=== PATIENT | female | born 1995 | race Hispanic/Latino ===

== ENCOUNTER 2017-08-29 00:54 | Emergency (ER) | payer BC ==
[2017-08-29 01:43] VITALS: BP 133/83; PULSE 79; RESP 16; TEMP 98.3; O2SAT 98
[2017-08-29] MEDS ORDERED: Sodium Chloride 0.9% 1,000 ML IV STA (02:17)
[2017-08-29 03:18] LABS: HEMOGLOBIN 11.9 g/dL (12.0-16.0); MEAN CELL VOLUME 94.7 fl (81.0-99.0); MEAN CORPUSCULAR HEMOGLOBIN 31.9 pg (27.0-31.0); MEAN CORPUSCULAR HGB CONC 33.7 g/dL (33.0-37.0); RBC 3.72 Mil/uL (3.80-5.20); RED CELL DISTRIBUTION WIDTH 12.9 % (11.5-14.5); WHITE BLOOD COUNT 7.8 K/uL (4.8-10.8)
[2017-08-29 03:22] LABS: ALB/GLOB RATIO 1.6 (1.0-2.1); ALBUMIN 4.4 g/dL (3.5-5.0); ALT/SGPT 33 U/L (9-52); AST/SGOT 23 U/L (14-36); BILIRUBIN,DIRECT 0.2 mg/ml (0.0-0.4); BLOOD UREA NITROGEN 12 mg/dl (7-17); CALCIUM 8.7 mg/dL (8.4-10.2); GFR AFRICAN-AMERICAN > 60; GFR NON-AFRICAN AMERICAN > 60; LIPASE 116 U/L (23-300)
--- NOTE | 2017-08-29 03:32 | ED PDOC ---
HPI: Abdomen Time Seen by Provider: 08/29/17 02:12 Chief Complaint (Nursing): Abdominal Pain Chief Complaint (Provider): Abdominal pain History Per: Patient History/Exam Limitations: no limitations Onset/Duration Of Symptoms: Days Outside of [place] travel?: No Location Of Pain/Discomfort: Epigastric Associated Symptoms: Nausea. denies: Vomiting Additional History Per: Patient Additional Complaint(s): 22yo female, presents to ED with complaints of epigastric pain, present for the past 2 months but worse last night. Patient states she was drinking wine last night and felt the pain was worse than normal. She reports some associated nausea, denies any vomiting, diarrhea, constipation, urinary symptoms, fever, chills or weight loss. She has no other medical complaints. Past Medical History Reviewed: Historical Data, Nursing Documentation, Vital Signs Vital Signs: Last Vital Signs Temp 98.3 F 08/29/17 01:41 Pulse 79 08/29/17 01:41 Resp 16 08/29/17 01:41 BP 133/83 08/29/17 01:41 Pulse Ox 98 08/29/17 01:41 - Medical History PMH: No Chronic Diseases - Surgical History Surgical History: No Surg Hx - Family History Family History: States: No Known Family Hx - Home Medications Home Medications: Ambulatory Orders Medication Instructions Recorded Famotidine [Pepcid] 20 mg PO BID #20 tab 08/29/17 Omeprazole 20 mg PO DAILY #30 capsule. 08/29/17 - Allergies Allergies/Adverse Reactions: Allergies Allergy/AdvReac Type Severity Reaction Status Date / Time Sulfa (Sulfonamide Allergy URTICARIA Verified 08/29/17 01:43 Antibiotics) Review of Systems ROS Statement: Except As Marked, All Systems Reviewed And Found Negative Constitutional: Negative for: Fever, Chills Gastrointestinal: Positive for: Nausea, Abdominal Pain (epigastric). Negative for: Vomiting, Diarrhea, Constipation Genitourinary Female: Negative for: Dysuria, Frequency, Hematuria Physical Exam - Reviewed Nursing Documentation Reviewed: Yes Vital Signs Reviewed: Yes - Physical Exam Appears: Positive for: Non-toxic, No Acute Distress Head Exam: Positive for: ATRAUMATIC, NORMAL INSPECTION, NORMOCEPHALIC Skin: Positive for: Normal Color Eye Exam: Positive for: EOMI, PERRL Neck: Positive for: Supple Cardiovascular/Chest: Positive for: Regular Rate, Rhythm Respiratory: Positive for: Normal Breath Sounds. Negative for: Respiratory Distress Gastrointestinal/Abdominal: Positive for: Soft, Tenderness (epigastric) Neurologic/Psych: Positive for: Alert, Oriented. Negative for: Motor/Sensory Deficits - Laboratory Results Result Diagrams: 08/29/17 03:06 08/29/17 03:06 - ECG O2 Sat by Pulse Oximetry: 98 (RA) Pulse Ox Interpretation: Normal Medical Decision Making Medical Decision Making: Impression: Gastritis vs. pancreatitis Plan: -- Labs -- Pepcid 20 mg IVP -- IV Fluids Time: 0330 Patient reports feeling much better and is stable for discharge home. Patient informed to return to ED if symptoms worsen or new symptoms arise. Scribe Attestation: Documented by Indira Wilder, acting as a scribe for Denny Shi MD Provider Scribe Attestation: All medical record entries made by the Scribe were at my direction and personally dictated by me. I have reviewed the chart and agree that the record accurately reflects my personal performance of the history, physical exam, medical decision making, and the department course for this patient. I have also personally directed, reviewed, and agree with the discharge instructions and disposition. Disposition - Clinical Impression Clinical Impression: Gastritis - Disposition Referrals: Lety Guy [Outside] Disposition: Routine/Home Disposition Time: 03:36 Condition: STABLE Prescriptions: Famotidine [Pepcid] 20 mg PO BID #20 tab Omeprazole 20 mg PO DAILY #30 capsule. Instructions: Gastritis (DC), Diet for Ulcers and Gastritis (ED) Forms: [employer] (Khmer)
== END 2017-08-29 03:45 | disposition home or self-care (01) ==
LOC: H.ER 00:54
DX: K29.70 Gastritis, unspecified, without bleeding (principal)
CPT/HCPCS: 80048; 80076; 83690; 85027; 96374; 99282; G0480; J7040